=== PATIENT | female | born 1995 | race Caucasian/White ===

== ENCOUNTER 2016-10-11 02:40 | Emergency (ER) | payer OTHER ==
[~2016-10-11] VITALS: Ht 154.9 cm; Wt 53.2 kg
[2016-10-11 03:39] LABS: HEMATOCRIT 40.4 % (36.0-46.0); MCH 26.5 PG (29.0-34.0); MCHC 35.1 G/DL (30.0-36.0); MCV 75.5 FL (83-99); MEAN PLAT.VOLUME 10.4 uM^3 (9.5-12.4); PLATELET COUNT 139 K/uL (156-360); RBC DIS.WIDTH-CV 12.8 % (11.8-14.6); RBC DIS.WIDTH-SD 34.2 % (39-53); RED BLOOD COUNT 5.35 M/uL (3.80-5.20); WHITE BLOOD COUNT 10.8 K/uL (4.1-10.2)
[2016-10-11 03:52] LABS: CHLORIDE 109 mEq/L (99-109); POTASSIUM 3.9 mEq/L (3.7-5.4); SODIUM 142 mEq/L (136-147)
[2016-10-11 03:54] LABS: GLUCOSE 132 mg/dL (70-99)
[2016-10-11 03:55] LABS: ANION GAP 12 MEQ/L (2-14)
[2016-10-11 03:56] LABS: TOTAL BILIRUBIN 2.2 mg/dL (0.0-1.0)
[2016-10-11 03:57] LABS: ALKALINE PHOSPHATASE 90 IU/L (3-129)
[2016-10-11 03:58] LABS: GFR ESTIMATE (CALCULATED) > 59 mL/min/
[2016-10-11 03:59] LABS: UREA NITROGEN (BUN) 17 mg/dL (9-23)
[2016-10-11 04:01] LABS: LIPASE 15 U/L (1.0-51.0)
[2016-10-11 04:08] LABS: QUANTITATIVE HCG < 4.0 MIU/ML
[2016-10-11] MEDS ORDERED: ZOFRAN8 MG PO (04:42)
[2016-10-11 04:52] LABS: ADD MIUA? NO; BILIRUBIN NEGATIVE; BLOOD NEGATIVE; COLOR YELLOW ((YELLOW)); GLUCOSE (STRIP) NEGATIVE; KETONES 20; LEUKOCYTES NEGATIVE; NITRITE NEGATIVE; PROTEIN (STRIP) 30; UCUL ADDED? NO; UROBILINOGEN 0.2 MG/DL (0.2-1.0)
[2016-10-11 05:10] LABS: INTERNAL CONTROL VALID? YES; MONOSPOT (MONONUCLEOSIS SEROL) NEGATIVE
[2016-10-11 05:17] LABS: SPECIFIC GRAVITY 1.073 (1.000-1.030)
[2016-10-11 05:30] VITALS: BP 105/64
== END 2016-10-11 05:35 | disposition home or self-care (01) ==
LOC: EME 02:40
PROVIDERS: Emergency Medicine
DX: K29.00 Acute gastritis without bleeding (principal); R16.1 Splenomegaly, not elsewhere classified; E80.7 Disorder of bilirubin metabolism, unspecified
CPT/HCPCS: 74177; 80053; 81003; 83690; 84702; 85027; 86308; 93005; 99281; 99284; J2405; J7030